=== PATIENT | female | born 1960 | race Caucasian/White ===

== ENCOUNTER 2016-06-06 13:29 | Emergency (ER) | payer MEDICAID | END 2016-06-06 16:30 | disposition home or self-care (01) | LOC: D.ER 13:29 | DX: S42.92XA Fracture of left shoulder girdle, part unspecified, initial encounter for closed fracture (principal); W18.2XXA Fall in (into) shower or empty bathtub, initial encounter; F17.200 Nicotine dependence, unspecified, uncomplicated ==

== ENCOUNTER → 2017-04-03 12:22 | Outpatient (CLI) | payer MEDICAID | END | disposition home or self-care (01) | LOC: D.MAMMO 01-28 09:30 | DX: Z12.31 Encounter for screening mammogram for malignant neoplasm of breast (principal) ==